=== PATIENT | female | born 1965 | race Caucasian/White ===

== ENCOUNTER → 2023-12-30 16:38 | Outpatient (REF) | payer BC, SELFPAY | LOC: WDC 16:38 | PROVIDERS: ATTENDING PHYSICIAN Obstetrics & Gynecology Gynecology; FAMILY PHYSICIAN Internal Medicine | DX: Z12.31 Encounter for screening mammogram for malignant neoplasm of breast (principal); Z01.419 Encounter for gynecological examination (general) (routine) without abnormal findings | CPT/HCPCS: 77063; 77067 ==

== ENCOUNTER → 2023-12-31 17:04 | Outpatient (REF) | payer BC, SELFPAY | LOC: RAD 17:04 | PROVIDERS: ATTENDING PHYSICIAN Internal Medicine | DX: R06.2 Wheezing (principal) | CPT/HCPCS: 71046 ==

== ENCOUNTER 2024-08-15 13:17 | Emergency (ER) | payer BC, SELFPAY ==
[2024-08-15 13:30] VITALS: BP 149/100
[2024-08-15 14:09] VITALS: BMI 24.3
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
[2024-08-15 15:21] VITALS: BP 135/87
== END 2024-08-15 15:22 | disposition home or self-care (01) ==
LOC: EMR 13:17
PROVIDERS: EMERGENCY PHYSICIAN Emergency Medicine; FAMILY PHYSICIAN Internal Medicine
DX: H43.391 Other vitreous opacities, right eye (principal)
CPT/HCPCS: 99283

== ENCOUNTER → 2025-03-31 13:49 | Outpatient (REF) | payer BC, SELFPAY | LOC: WDC 13:49 | PROVIDERS: ATTENDING PHYSICIAN Obstetrics & Gynecology Gynecology; FAMILY PHYSICIAN Internal Medicine | DX: Z12.31 Encounter for screening mammogram for malignant neoplasm of breast (principal) | CPT/HCPCS: 77063; 77067 ==